=== PATIENT | male | born 1980 | race Caucasian/White ===

== ENCOUNTER 2018-05-28 22:56 | Emergency (ER) | payer SELFPAY ==
--- NOTE | 2018-05-28 23:58 | ED PDOC ---
HPI: General Adult Time Seen by Provider: 05/28/18 23:32 Chief Complaint (Nursing): Foreign Body Chief Complaint (Provider): possible fish bone stuck in throat History Per: Patient History/Exam Limitations: no limitations Additional Complaint(s): 37 y/o male presents for evaluation of possible fish bone stuck in throat x 2 days. Patient states he was eating fish 2 days ago and feels a piece stuck and has not moved despite at home remedies. Reports pain when swallowing. Denies fever, nausea/vomiting, chest pain, shortness of breath, palpitations. Past Medical History Reviewed: Historical Data, Nursing Documentation, Vital Signs Vital Signs: Last Vital Signs Temp 97.7 F 05/28/18 23:01 Pulse 69 05/28/18 23:01 Resp 16 05/28/18 23:01 BP 115/86 05/28/18 23:01 Pulse Ox 98 05/28/18 23:58 - Medical History PMH: No Chronic Diseases - Surgical History Surgical History: No Surg Hx - Family History Family History: States: No Known Family Hx - Living Arrangements Living Arrangements: With Family - Home Medications Home Medications: Ambulatory Orders Medication Instructions Recorded Ibuprofen [Motrin Tab] 1 tab PO Q6 PRN #20 tab 05/29/18 - Allergies Allergies/Adverse Reactions: Allergies Allergy/AdvReac Type Severity Reaction Status Date / Time No Known Allergies Allergy Verified 05/28/18 23:01 Review of Systems ROS Statement: Except As Marked, All Systems Reviewed And Found Negative ENT: Positive for: Throat Pain Physical Exam - Reviewed Nursing Documentation Reviewed: Yes Vital Signs Reviewed: Yes - Physical Exam Appears: Positive for: Well, Non-toxic, No Acute Distress Head Exam: Positive for: ATRAUMATIC, NORMAL INSPECTION, NORMOCEPHALIC Skin: Positive for: Normal Color Eye Exam: Positive for: Normal appearance ENT: Positive for: Normal ENT Inspection Cardiovascular/Chest: Positive for: Regular Rate, Rhythm Respiratory: Positive for: Normal Breath Sounds Gastrointestinal/Abdominal: Positive for: Normal Exam Back: Positive for: Normal Inspection Extremity: Positive for: Normal ROM Neurologic/Psych: Positive for: Alert, Oriented (x3) - ECG O2 Sat by Pulse Oximetry: 98 - Progress ED Course And Treament: CT soft tissue neck EXAM: CT Neck Without Intravenous Contrast EXAM DATE/TIME: Exam ordered 05/28/2018 11:44 PM CLINICAL HISTORY: 37 years old, male; Pain; Throat pain; Additional info: R/O fb, possible fish bone in throat TECHNIQUE: Axial computed tomography images of the neck without intravenous contrast. All CT scans at this facility use at least one of these dose optimization techniques: automated exposure control; mA and/or kV adjustment per patient size (includes targeted exams where dose is matched to clinical indication); or iterative reconstruction. COMPARISON: No relevant prior studies available. FINDINGS: Oropharynx: Normal. No significant tonsillar enlargement. Hypopharynx: Normal. Larynx: Normal. Normal epiglottis. Trachea: Normal. Retropharyngeal space: Normal. Submandibular/parotid glands: Normal. Glands are normal in size. Thyroid: Normal. No enlarged or calcified nodules. Bones/joints: No acute fracture. Soft tissues: Normal. Vasculature: No acute findings. Lymph nodes: Normal. No lymphadenopathy. Lung apices: Unremarkable as visualized. IMPRESSION: No CT evidence for ingested foreign body. Patient educated on findings, discharged with rx ibuprofen Advised follow up PMD 2-3 days Return precautions given Disposition - Clinical Impression Clinical Impression: Foreign body sensation in throat - Patient ED Disposition Is Patient to be Admitted: No Counseled Patient/Family Regarding: Studies Performed, Diagnosis, Need For Followup, Rx Given - Disposition Referrals: [facility] [Outside] Disposition: Routine/Home Disposition Time: 00:51 Condition: STABLE Prescriptions: Ibuprofen [Motrin Tab] 1 tab PO Q6 PRN #20 tab PRN Reason: Pain, Moderate (4-7)
[2018-05-29 01:21] VITALS: BP 111/63; PULSE 74; RESP 17; TEMP 97.9; O2SAT 100
--- NOTE | 2018-05-29 13:32 | CT ---
Date of service: 05/28/2018 PROCEDURE: CT NECK WITHOUT CONTRAST HISTORY: r/o FB, possible fish bone in throat COMPARISON: None. TECHNIQUE: CT of the neck without intravenous contrast. Coronal and sagittal reformats generated. Radiation dose: DLP 340.54 mGy-cm This CT exam was performed using one or more of the following dose reduction techniques: Automated exposure control, adjustment of the mA and/or kV according to patient size, and/or use of iterative reconstruction technique. FINDINGS: NASOPHARYNX: Unremarkable. SUPRAHYOID NECK: Unremarkable oropharynx, oral cavity, parapharyngeal space and retropharyngeal space. No retained radiodense foreign body is appreciated grossly. INFRAHYOID NECK: Unremarkable larynx, hypopharynx, and supraglottic space. Vocal cords intact. No retained radiodense foreign body is appreciated. MASS: No findings suggest definite GLANDS: Parotid and submandibular glands unremarkable. Normal size thyroid gland, without nodule. LYMPH NODES: Normal. No lymphadenopathy. Mass in this noncontrast neck CT. CERVICAL SPINE: No fracture or focal lesion. OTHER FINDINGS: None. IMPRESSION: Unremarkable non-contrast enhanced CT of the neck. No retained radiodense foreign body appreciated in the pharynx, larynx or in the visualized esophagus down to the level of the mid chest. Concordant preliminary report from [facility], 05/29/2018.
== END 2018-05-29 01:10 | disposition home or self-care (01) ==
LOC: H.ER 22:56
DX: R09.89 Other specified symptoms and signs involving the circulatory and respiratory systems (principal)

== ENCOUNTER 2018-09-28 21:57 | Emergency (ER) | payer SELFPAY ==
[2018-09-28] MEDS ORDERED: Sodium Chloride 0.9% 1,000 ML IV STA (22:30)
[2018-09-28 22:54] LABS: BASO % 0.3 % (0.0-2.0); EOS # 0.4 K/uL (0.0-0.7); EOS % 4.3 % (0.0-4.0); HEMOGLOBIN 16.5 g/dL (12.0-18.0); LYMPH # 2.7 K/uL (1.0-4.3); LYMPH % 27.4 % (20.0-40.0); MEAN CELL VOLUME 88.7 fl (80.0-94.0); MEAN CORPUSCULAR HEMOGLOBIN 29.8 pg (27.0-31.0); MEAN CORPUSCULAR HGB CONC 33.6 g/dL (33.0-37.0); MEAN PLATELET VOLUME 8.2 fl (7.2-11.7); MONO # 0.9 K/uL (0.0-0.8); MONO % 9.4 % (0.0-10.0); NEUT # 5.7 K/uL (1.8-7.0); NEUT % 58.6 % (50.0-75.0); NRBC % 0.1 % (0.0-0.0); RBC 5.53 Mil/uL (4.40-5.90); RED CELL DISTRIBUTION WIDTH 13.6 % (11.5-14.5); WHITE BLOOD COUNT 9.8 K/uL (4.8-10.8)
--- NOTE | 2018-09-28 22:56 | ED PDOC ---
HPI: Chest Pain Time Seen by Provider: 09/28/18 22:18 Chief Complaint (Nursing): Chest Pain Chief Complaint (Provider): Chest pain History Per: Patient History/Exam Limitations: no limitations Onset/Duration Of Symptoms: Days (chest pain: 2x weeks. Rectal bleedinx day) Current Symptoms Are (Timing): Still Present Severity: Moderate Associated Symptoms: Other (rectal bleeding (2x episodes with bowel movements)) Additional Complaint(s): 38 year old [place]ron[place] male with a past medical history of peptic ulcer disease presents to the ED with complaints of left sided chest pain that has been ongoing for 2x weeks accompanied by rectal bleeding that started today. Patient states he had 2x bowel movements today, the first one he saw a small amount of blood, subsequently his second bowel movement, had large amounts of bright red blood. Patient denies having abdominal pain, but reports having left sided chest pain which he attributed to his peptic ulcer disease. Patient states that the first 2x days he had chest pain, he took Nexium. Patient denies having nausea, vomiting, changes in appetite, cough, fevers, shortness of breath. PMD: None provided. Past Medical History Reviewed: Historical Data, Nursing Documentation, Vital Signs Vital Signs: Last Vital Signs Temp 97.9 F 09/28/18 22:00 Pulse 89 09/28/18 22:00 Resp 16 09/28/18 22:00 BP 122/77 09/28/18 22:00 Pulse Ox 99 09/28/18 22:00 - Medical History PMH: Gastritis Denies: Chronic Kidney Disease Other PMH: peptic ulcer disease - Family History Family History: States: No Known Family Hx - Social History Current smoker - smoking cessation education provided: No Alcohol: None Drugs: Denies - Home Medications Home Medications: Ambulatory Orders Medication Instructions Recorded Ibuprofen [Motrin Tab] 1 tab PO Q6 PRN #20 tab 05/29/18 Esomeprazole Magnesium [Nexium] 20 mg PO QAM #14 ecc 09/28/18 - Allergies Allergies/Adverse Reactions: Allergies Allergy/AdvReac Type Severity Reaction Status Date / Time No Known Allergies Allergy Verified 05/28/18 23:01 Review of Systems ROS Statement: Except As Marked, All Systems Reviewed And Found Negative Constitutional: Negative for: Fever, Other (loss of appetite) Cardiovascular: Positive for: Chest Pain Respiratory: Negative for: Cough, Shortness of Breath Gastrointestinal: Positive for: Other (rectal bleeding (2x episodes) with bowel movements). Negative for: Nausea, Vomiting, Abdominal Pain Physical Exam - Reviewed Nursing Documentation Reviewed: Yes Vital Signs Reviewed: Yes - Physical Exam Appears: Positive for: Well, Non-toxic, No Acute Distress Head Exam: Positive for: ATRAUMATIC, NORMOCEPHALIC Skin: Positive for: Normal Color Cardiovascular/Chest: Positive for: Regular Rate, Rhythm Respiratory: Positive for: Normal Breath Sounds Gastrointestinal/Abdominal: Positive for: Tenderness (mild left upper quadrant tenderness. ) Back: Positive for: Normal Inspection Extremity: Positive for: Normal ROM Neurologic/Psych: Positive for: Alert, Oriented (3x) - Laboratory Results Result Diagrams: 09/28/18 22:51 09/28/18 22:51 - ECG O2 Sat by Pulse Oximetry: 99 (RA) Pulse Ox Interpretation: Normal Medical Decision Making Medical Decision Makin:18 Initial impression: 38 year old male with chest pain. Initial plan: * XRay abdomen with chest * EKG * CMP * drug screen * lipase * troponin I * udip * CBC * urinalysis * occult blood stool * IV NS 1,000 ml IV ,1000 mls/hr * protonix injection 40 mg IV * reevaluation 2335 Labs reviewed for no clinically significant abnormalities. XR showed no active diseases. Patient reports improvement of chest pain and is stable for discharge with diagnosis of atypical chest pain and hematochezia. Referral to GI specialist will be given to patient. Scribe Attestation: Documented byVicki Valdes, acting as a scribe for Miguel Roque MD. Provider Scribe Attestation: All medical record entries made by the Scribe were at my direction and personally dictated by me. I have reviewed the chart and agree that the record accurately reflects my personal performance of the history, physical exam, medical decision making, and the department course for this patient. I have also personally directed, reviewed, and agree with the discharge instructions and disposition. Disposition - Clinical Impression Clinical Impression: Atypical chest pain, Hematochezia - Patient ED Disposition Is Patient to be Admitted: No Counseled Patient/Family Regarding: Studies Performed, Diagnosis, Need For Followup - Disposition Referrals: [facility] [Outside] De Hammond MD [Staff Provider] - Disposition: Routine/Home Disposition Time: 23:37 Condition: STABLE Prescriptions: Esomeprazole Magnesium [Nexium] 20 mg PO QAM #14 ecc Instructions: Chest Pain That Is Not Caused by the Heart (DC), Bloody Stools Forms: [employer] (Czech)
[2018-09-28 23:00] LABS: URINE BILIRUBIN NEGATIVE (NEGATIVE); URINE BLOOD NEGATIVE (NEGATIVE); URINE CLARITY SLIGHTY-CLOUDY (Clear); URINE COLOR YELLOW (YELLOW); URINE GLUCOSE (UA) NEG (Normal); URINE LEUKOCYTE ESTERASE NEG Leu/uL (Negative); URINE PROTEIN NEGATIVE (NEGATIVE); URINE UROBILINOGEN 0.2-1.0 mg/dL (0.2-1.0)
[2018-09-28 23:11] LABS: BARBITURATES, UR NEGATIVE (NEGATIVE); BENZODIAZEPINES, UR NEGATIVE (NEGATIVE); OPIATES, UR NEGATIVE (NEGATIVE); PHENCYCLIDINE, UR NEGATIVE (NEGATIVE)
[2018-09-28 23:12] LABS: ALB/GLOB RATIO 1.2 (1.0-2.1); ALBUMIN 5.1 g/dL (3.5-5.0); BLOOD UREA NITROGEN 20 mg/dl (9-20); GFR NON-AFRICAN AMERICAN > 60; LIPASE 216 U/L (23-300)
[2018-09-28 23:18] LABS: ALT/SGPT 128 U/L (21-72); AST/SGOT 69 U/L (17-59)
[2018-09-29 00:24] VITALS: BP 106/68; PULSE 81; RESP 18; TEMP 97.1; O2SAT 100
--- NOTE | 2018-09-29 08:07 | RAD ---
Date of service: 09/28/2018 PROCEDURE: Radiographs of the chest and abdomen (obstructive series) HISTORY: abd pain COMPARISON: No prior. TECHNIQUE: AP radiograph of the chest, with upright and supine radiographs of the abdomen. FINDINGS: CHEST: Lungs: Clear. Cardiovascular: Normal size heart. No pulmonary vascular congestion. No aortic atherosclerotic calcification present Pleura: No pleural fluid. No pneumothorax. Other findings: None. ABDOMEN AND PELVIS: Bowel: Prominent retained fecal material seen throughout the colon. No evidence of mechanical obstruction. Free air: None. Bones: Unremarkable. Other findings: None. IMPRESSION: Unremarkable radiographs of chest. Potential constipation pattern in abdomen radiographs. No evidence of mechanical bowel obstruction.
== END 2018-09-29 00:32 | disposition home or self-care (01) ==
LOC: H.ER 21:57
DX: R07.89 Other chest pain (principal); K92.1 Melena
CPT/HCPCS: 74022; 80053; 81003; 83690; 84484; 85025; 96360; 99283; C9113; G0480; J7030

== ENCOUNTER 2019-01-24 00:59 | Emergency (ER) | payer SELFPAY ==
[2019-01-24 01:12] VITALS: O2SAT 95
[2019-01-24 02:26] LABS: URINE BILIRUBIN NEGATIVE (NEGATIVE); URINE BLOOD NEGATIVE (NEGATIVE); URINE CLARITY CLEAR (Clear); URINE COLOR YELLOW (YELLOW); URINE GLUCOSE (UA) NEG (NEGATIVE); URINE LEUKOCYTE ESTERASE NEG Leu/uL (Negative); URINE PROTEIN NEGATIVE (NEGATIVE); URINE UROBILINOGEN 0.2-1.0 mg/dL (0.2-1.0)
[2019-01-24 02:30] LABS: BASO % 0.6 % (0.0-2.0); EOS # 0.3 K/uL (0.0-0.7); HEMOGLOBIN 15.4 g/dL (12.0-18.0); LYMPH # 2.5 K/uL (1.0-4.3); LYMPH % 36.6 % (20.0-40.0); MEAN CELL VOLUME 88.6 fl (80.0-94.0); MEAN CORPUSCULAR HEMOGLOBIN 29.5 pg (27.0-31.0); MEAN CORPUSCULAR HGB CONC 33.3 g/dL (33.0-37.0); MEAN PLATELET VOLUME 8.3 fl (7.2-11.7); MONO # 0.6 K/uL (0.0-0.8); MONO % 8.1 % (0.0-10.0); NEUT # 3.5 K/uL (1.8-7.0); NEUT % 49.7 % (50.0-75.0); NRBC % 0.1 % (0.0-0.0); RBC 5.22 Mil/uL (4.40-5.90); RED CELL DISTRIBUTION WIDTH 13.7 % (11.5-14.5); WHITE BLOOD COUNT 6.9 K/uL (4.8-10.8)
[2019-01-24 02:37] LABS: ALBUMIN 4.2 g/dL (3.5-5.0); ALT/SGPT 111 U/L (21-72); AST/SGOT 55 U/L (17-59); BLOOD UREA NITROGEN 16 mg/dl (9-20); CALCIUM 9.7 mg/dL (8.4-10.2); GFR NON-AFRICAN AMERICAN > 60
--- NOTE | 2019-01-24 03:07 | ED PDOC ---
HPI: Chest Pain Time Seen by Provider: 01/24/19 01:29 Chief Complaint (Nursing): Chest Pain Chief Complaint (Provider): Chest Pain History Per: Patient History/Exam Limitations: no limitations Additional Complaint(s): 38 y/o [place] male with history of gastritis presents to the ED complaining of chest pain for 2 days. Patient states pain is left sided and radiates from his chest to left side of his neck. Denies any associated nausea, vomiting, or diaphoresis. Patient reports that he recently returned from [facility] where he went for the of his father who from a protracted illness. Patient is additionally complaining of left sided headache. PMD: None Past Medical History Reviewed: Historical Data, Nursing Documentation, Vital Signs Vital Signs: Last Vital Signs Temp 97.7 F 01/24/19 01:09 Pulse 92 H 01/24/19 01:09 Resp 18 01/24/19 01:09 BP 109/68 01/24/19 01:09 Pulse Ox 95 01/24/19 01:09 - Medical History PMH: Gastritis Denies: Chronic Kidney Disease - Surgical History Surgical History: No Surg Hx - Family History Family History: States: Unknown Family Hx - Social History Current smoker - smoking cessation education provided: No Alcohol: None Drugs: Denies - Home Medications Home Medications: Ambulatory Orders Medication Instructions Recorded Ibuprofen [Motrin Tab] 1 tab PO Q6 PRN #20 tab 05/29/18 Esomeprazole Magnesium [Nexium] 20 mg PO QAM #14 ecc 09/28/18 - Allergies Allergies/Adverse Reactions: Allergies Allergy/AdvReac Type Severity Reaction Status Date / Time No Known Allergies Allergy Verified 05/28/18 23:01 Review of Systems ROS Statement: Except As Marked, All Systems Reviewed And Found Negative Constitutional: Negative for: Sweats Cardiovascular: Positive for: Chest Pain Gastrointestinal: Negative for: Nausea, Vomiting Musculoskeletal: Positive for: Neck Pain Physical Exam - Reviewed Nursing Documentation Reviewed: Yes Vital Signs Reviewed: Yes - Physical Exam Appears: Positive for: Well, Non-toxic, No Acute Distress Head Exam: Positive for: ATRAUMATIC, NORMAL INSPECTION, NORMOCEPHALIC Skin: Positive for: Normal Color, Warm, DRY Eye Exam: Positive for: EOMI, Normal appearance, PERRL ENT: Positive for: Normal ENT Inspection Neck: Positive for: Normal, Painless ROM Cardiovascular/Chest: Positive for: Regular Rate, Rhythm. Negative for: Murmur Respiratory: Positive for: Normal Breath Sounds. Negative for: Respiratory Distress Gastrointestinal/Abdominal: Positive for: Normal Exam, Soft. Negative for: Tenderness Back: Positive for: Normal Inspection Extremity: Positive for: Normal ROM. Negative for: Pedal Edema, Deformity Neurological/Psych: Positive for: Awake, Alert, Normal Tone. Negative for: Motor/Sensory Deficits - Laboratory Results Result Diagrams: 01/24/19 02:27 01/24/19 02:27 Lab Results: Total Bilirubin 0.4 mg/dl (0.2-1.3) 01/24/19 02:27 AST 55 U/L (17-59) 01/24/19 02:27 ALT 111 U/L (21-72) H 01/24/19 02:27 Alkaline Phosphatase 53 U/L (38-126) 01/24/19 02:27 Total Protein 8.4 G/DL (6.3-8.2) H 01/24/19 02:27 Albumin 4.2 g/dL (3.5-5.0) 01/24/19 02:27 Globulin 4.2 gm/dL (2.2-3.9) H 01/24/19 02:27 Albumin/Globulin Ratio 1.0 (1.0-2.1) 01/24/19 02:27 Urine Color Yellow (YELLOW) 01/24/19 02:05 Urine Clarity Clear (Clear) 01/24/19 02:05 Urine pH 7.0 (5.0-8.0) 01/24/19 02:05 Ur Specific [place] 1.016 (1.003-1.030) 01/24/19 02:05 Urine Protein Negative mg/dL (NEGATIVE) 01/24/19 02:05 Urine Glucose (UA) Neg mg/dL (NEGATIVE) 01/24/19 02:05 Urine Ketones Negative mg/dL (NEGATIVE) 01/24/19 02:05 Urine Blood Negative (NEGATIVE) 01/24/19 02:05 Urine Nitrate Negative (NEGATIVE) 01/24/19 02:05 Urine Bilirubin Negative (NEGATIVE) 01/24/19 02:05 Urine Urobilinogen 0.2-1.0 mg/dL (0.2-1.0) 01/24/19 02:05 Ur Leukocyte Esterase Neg Aris/uL (Negative) 01/24/19 02:05 Urine RBC (Auto) < 1 /hpf (0-3) 01/24/19 02:05 Urine Microscopic WBC < 1 /hpf (0-5) 01/24/19 02:05 - ECG O2 Sat by Pulse Oximetry: 95 (RA) Pulse Ox Interpretation: Normal Medical Decision Making Medical Decision Making: Time:01:59 Initial Impression:38 y/o with chest pain Initial Plan: * Labs * EKG * CT Head 02:49 CT Head Normal size of the ventricles and extra-axial spaces for the patient's age. Normal white matter tracts of the supratentorial brain. Normal basal ganglia and thalami. Normal brainstem. Normal cerebellum. There is no demonstrated extra-axial, intraparenchymal, or intraventricular hemorrhage. There are no findings of an acute ischemic infarction. Normal calvarium. There is no demonstrated fracture. Normal soft tissue structures. Normal visualized paranasal sinuses. IMPRESSION: Normal unenhanced CT scan of the brain. 04:00 Labs reviewed no clinically significant abnormalities. Patient is stable for discharge. Diagnosis is atypical chest pain, stress. Scribe Attestation: Documented by Luis Maneul Barr, acting as a scribe forDr. iMguel Roque MD Provider Scribe Attestation: All medical record entries made by the Scribe were at my direction and personally dictated by me. I have reviewed the chart and agree that the record accurately reflects my personal performance of the history, physical exam, medical decision making, and the department course for this patient. I have also personally directed, reviewed, and agree with the discharge instructions and disposition. Disposition - Clinical Impression Clinical Impression: Atypical chest pain, Stress - Patient ED Disposition Is Patient to be Admitted: No - Disposition Disposition: Routine/Home Disposition Time: 04:00 Condition: IMPROVED Additional Instructions: ZAIRE WEAVER, thank you for letting us take care of you today. Your provider was Miguel Roque MD and you were treated for CHEST PAIN. The emergency medical care you received today was directed at your acute symptoms. If you were prescribed any medication, please fill it and take as directed. It may take several days for your symptoms to resolve. Return to the Emergency Department if your symptoms worsen, do not improve, or if you have any other problems. Please contact your doctor or call one of the physicians/clinics you have been referred to that are listed on the Patient Visit Information form that is included in your discharge packet. Bring any paperwork you were given at discharge with you along with any medications you are taking to your follow up visit. Our treatment cannot replace ongoing medical care by a primary care provider outside of the emergency department. Thank you for allowing the [facility] team to be part of your care today. If you had an X-Ray or CT scan: A Radiologist will review the ED reading if any change in treatment is needed we will contact you. If you had a blood, urine, or wound culture: It will take several days for the results, if any change in treatment is needed we will contact you. If you had an STI test: It will take 48 hours for the results. Please call after 1 week if you have not heard back. Instructions: Chest Pain That Is Not Caused by the Heart (DC), Stress Forms: [employer] (Hebrew)
[2019-01-24 04:11] VITALS: BP 146/85; PULSE 70; RESP 16; TEMP 98.1
--- NOTE | 2019-01-24 11:25 | CT ---
Date of service: 01/24/2019 PROCEDURE: CT HEAD WITHOUT CONTRAST. HISTORY: headache COMPARISON: None available. TECHNIQUE: Axial computed tomography images were obtained through the head/brain without intravenous contrast. Radiation dose: Total exam DLP = 810.97 mGy-cm. This CT exam was performed using one or more of the following dose reduction techniques: Automated exposure control, adjustment of the mA and/or kV according to patient size, and/or use of iterative reconstruction technique. FINDINGS: HEMORRHAGE: No intracranial hemorrhage. BRAIN: No mass effect or edema. No atrophy or chronic microvascular ischemic changes. VENTRICLES: Unremarkable. No hydrocephalus. CALVARIUM: Unremarkable. PARANASAL SINUSES: Unremarkable as visualized. No significant inflammatory changes. MASTOID AIR CELLS: Unremarkable as visualized. No inflammatory changes. OTHER FINDINGS: None. IMPRESSION: Normal CT of the Head. This agrees with preliminary report.
--- NOTE | 2019-01-25 18:48 | CARD ---
APPROVED REPORT Date of service: 01/24/2019 EKG Measurement Heart [id number] <Conclusion> Normal sinus rhythm Normal ECG
== END 2019-01-24 04:05 | disposition home or self-care (01) ==
LOC: H.ER 00:59
DX: R07.9 Chest pain, unspecified (principal); F43.9 Reaction to severe stress, unspecified